=== PATIENT | male | born 1955 | race Caucasian/White ===

== ENCOUNTER 2016-09-08 18:11 | Emergency (ER) | payer BC, OTHER ==
[2016-09-08] MEDS ORDERED: Lidocaine 1% 20 ML MDV ONE (18:45)
[2016-09-08] MEDS ORDERED: traMADol HCl 50 MG TAB ONE (19:18)
[2016-09-08] MEDS ORDERED: Bacitracin Zinc 1 Packet ONE (19:19)
[2016-09-08] MEDS ORDERED: Cephalexin 250 MG CAP ONE (19:27)
--- NOTE | 2016-09-08 19:48 | ERRECORD ---
[facility] EMERGENCY RECORD PAST MEDICAL HISTORY (18:19 KMOR) MEDICAL HISTORY: Flu vaccine up to date, Tetanus immunization up to date, Pneumococcal vaccine not up to date, Past medical history includes history of hypertension, which has been treated. MALE SURGICAL HISTORY: Patient has no surgical history. PSYCHIATRIC HISTORY: No previous psychiatric history. SOCIAL HISTORY: Patient has no smoking history, Patient denies alcohol use, Patient denies drug use. KNOWN ALLERGIES No Known Drug Allergies CURRENT MEDICATIONS (18:18 KMOR) meTOPROLOL tartrate: TABLET : Strength - 50 mg : ORAL Patient Dose: 50 tab(s) Oral once a day. VITAL SIGNS VITAL SIGNS: Resp: 18, Temp: 98.3 (Oral), Pain: 4, Time: 09/08/2016 18:13. (18:13 KMOR) BP: 196/113, Pulse: 64, O2 sat: 100 on Room Air, Time: 09/08/2016 18:18. (18:18 KMOR) BP: 186/105, Pulse: 59, Resp: 18, Pain: 4, O2 sat: 99 on Room Air, Time: 09/08/2016 19:33. (19:33 KMOR) MEDICATION ADMINISTRATION SUMMARY Drug Name: bacitracin zinc, Dose Ordered: 1 units, Route: Topical, Status: Given, Time: 19:32 09/08/2016, Drug Name: lidocaine injection, Dose Ordered: 10 - 1% mL, Route: Subcutaneous, Status: Given, Time: 19:32 09/08/2016, Drug Name: Ultram, Dose Ordered: 100 mg, Route: Oral, Status: Given, Time: 19:28 09/08/2016, Drug Name: *Keflex, Dose Ordered: 1000 mg, Route: Oral, Status: Given, Time: 19:26 09/08/2016, *Additional information available in notes, Detailed record available in Medication Service section. DOCTOR NOTES (19:17 JPIP) TEXT: Advised to follow up with PCP for further evaluation of his BP. PROBLEM LIST No recorded problems DIAGNOSIS (19:17 JPIP) FINAL: PRIMARY: multiple hand lacerations. PRESCRIPTION (19:15 JPIP) &a-1R&a+25V*p+0X*[id number]*c202B*c15G*c2P*p-0X&a-25V&a+1R Name: Harpreet Booth : 1955 M61 MedRec: [id number] AcctNum: [id number] Prepared: WedSep 08, 2016 19:43 by Interface Page 1 of 2 pMD [facility] EMERGENCY RECORD cephALEXin: CAPSULE (HARD, SOFT, ETC.) : 500 mg : ORAL : Quantity: 1 Unit: tab(s) Route: ORAL Schedule: 3 times a day (after meals) Dispense: 30 May substitute. Refills: No Refills . NOTES: No refills. Ultram: TABLET : 50 mg : ORAL : Quantity: 1-2 Unit: tab(s) Route: ORAL Schedule: every 8 hours PRN Dispense: 30 May substitute. Refills: No Refills . NOTES: for pain No refills. DISPOSITION PATIENT: Disposition Type: Discharge, Disposition: *Discharge Home, Condition: Good. (19:17 JPIP) Patient left the department. (19:37 KMOR) Broines: FARAIP=DO Soares Joseph KMOR=CHARLEEN Osuna, Shandra &a-1R&a+25V*p+0X*[id number]*c202B*c15G*c2P*p-0X&a-25V&a+1R Name: Harpreet Booth : 1955 M61 MedRec: [id number] AcctNum: [id number] Prepared: WedSep 08, 2016 19:43 by Interface Page 2 of 2 pMD MTDD
== END 2016-09-08 19:29 | disposition home or self-care (01) ==
LOC: BURERS 18:11
DX: S61.412A Laceration without foreign body of left hand, initial encounter (principal); I10 Essential (primary) hypertension; W26.8XXA Contact with other sharp object(s), not elsewhere classified, initial encounter
CPT/HCPCS: 12004; J2001

== ENCOUNTER 2021-01-14 20:54 | Emergency (ER) | payer BC, MEDICARE ==
[2021-01-14 22:22] LABS: #Basophils 0.1 thou/uL (0.0-0.2); #Eosinphils 0.1 thou/uL (0.0-0.7); #Lymphocytes 1.4 thou/uL (1.20-3.40); #Monocytes 0.4 thou/uL (0.11-0.59); #Neutrophils 3.2 thou/uL (1.40-6.50); %Basophils 1.2 % (0.0-1.0); %Eosinophils 1.8 % (0.0-10.0); %Monocytes 7.6 % (0.0-10.0); %Neutrophils 62.4 % (42.0-75.0); Hemoglobin 15.4 g/dL (14.0-18.0); Mean Corpuscular HGB CONC 32.7 g/dL (32.0-36.0); Mean Corpuscular Hemoglobin 28.2 pg (27.0-31.0); Mean Corpuscular Volume 86.1 fL (78.0-98.0); Mean Platelet Volume 7.9 fL (7.4-10.4); Platelet Count 151 thou/uL (130-400); RBC Distribution Width 12.9 % (11.5-14.5); Red Blood Cell (RBC) Count 5.46 mill/uL (4.70-6.10); White Blood Cell (WBC) Count 5.2 thou/uL (4.8-10.8)
[2021-01-14] MEDS ORDERED: Amlodipine 5 MG TAB ONE (22:25)
[2021-01-14 22:27] LABS: ALT (SGPT) 23 U/L (8-55); AST (SGOT) 23 U/L (5-34); Albumin 4.4 g/dL (3.4-4.8); Alkaline Phosphatase 64 U/L (40-110); Anion Gap 14 mmol/L (10-20); BUN (Urea Nitrogen) 13 mg/dL (8.4-25.7); Bilirubin, Total 0.6 mg/dL (0.2-1.2); Calc. Creatinine Clearance 0 mL/min (70-130); Calcium 9.4 mg/dL (7.8-10.44); Carbon Dioxide 24 mmol/L (23-31); Chloride 106 mmol/L (98-107); Glucose 121 mg/dL (80-115); Potassium 3.4 mmol/L (3.5-5.1); Protein, Total 7.4 g/dL (5.8-8.1); Sodium 141 mmol/L (136-145)
[2021-01-14 22:37] LABS: Bilirubin Negative (Negative); Blood, Urine Negative (Negative); Clarity Clear (Clear); Glucose, Urine (Dipstick) Negative (Negative); Ketone, Urine Negative (Negative); Leukocyte Negative (Negative); Nitrite Negative (Negative); Protein, Urine (Dipstick) Negative (Neg-Trace); Specific Gravity, Urine 1.025 (1.005-1.030); Urobilinogen 0.2 mg/dL (Less than 2)
== END 2021-01-14 22:58 | disposition home or self-care (01) ==
LOC: BURERS 20:54
DX: I10 Essential (primary) hypertension (principal); Z79.899 Other long term (current) drug therapy
CPT/HCPCS: 74176; 80053; 81003; 83605; 85025; 93005